=== PATIENT | female | born 1950 | race Caucasian/White ===

== ENCOUNTER 2022-12-25 07:19 | Inpatient (IN) | payer OTHER, MEDICAID ==
[~2022-12-25] VITALS: Ht 157.5 cm; Wt 79.4 kg
[2022-12-25 07:23] VITALS: BP 184/74; PULSE 64; RESP 16; TEMP 98.1; O2SAT 97
--- NOTE | 2022-12-25 07:32 | NUR ---
PT PLACED IN ROOM 11, REPORT GIVEN TO KAROLINA GRIMM. PT PLACED ON FIG CAPRIFIER.
[2022-12-25] MEDS ORDERED: MORPHINE SULFATE 4 MG/ML SYR IVP ONE (07:35)
[2022-12-25] MEDS ORDERED: ONDANSETRON 4 MG/2 ML VIAL IVP ONE (07:35)
[2022-12-25 08:06] LABS: BASOPHILS % (AUTO) 0.2 % (0.0-2.0); EOSINOPHILS % (AUTO) 0.1 % (0.0-4.0); HEMOGLOBIN 13.6 g/dL (12.0-16.0); LYMPHOCYTES # (AUTO) 1.5 K/uL (2.5-16.5); LYMPHOCYTES % (AUTO) 14.3 % (20.5-51.1); MEAN CORPUSCULAR HEMOGLOBIN 30 pg (27-31); MEAN CORPUSCULAR HGB CONC 33 g/dL (33-37); MEAN CORPUSCULAR VOLUME 90.3 fL (80-94); MONOCYTES # (AUTO) 0.3 K/uL (0.8-1.0); MONOCYTES % (AUTO) 3.2 % (1.7-9.3); NEUTROPHILS # (AUTO) 8.8 K/uL (1.8-7.7); NEUTROPHILS % (AUTO) 82.2 % (42.2-75.2); PLATELET COUNT (AUTO) 198 K/uL (140-450); RED BLOOD CELL COUNT(AUTO) 4.54 MIL/uL (4.20-5.40); RED CELL DISTRIBUTION WIDTH 14.7 % (11.6-13.7); WHITE BLOOD COUNT (AUTO) 10.8 K/uL (4.8-10.8)
[2022-12-25 08:14] VITALS: BP 179/82; PULSE 77; RESP 16; TEMP 97.5; O2SAT 90
[2022-12-25 08:24] LABS: ALBUMIN 3.6 g/dL (3.4-5.0); ANION GAP 14.7 (8-16); ASPARTATE AMINOTRANSFERASE 18 U/L (15-37); CARBON DIOXIDE 24.9 mmol/L (21-32); CHLORIDE 103 mmol/L (98-107); CREATININE 0.8 mg/dL (0.6-1.3); GLUCOSE 229 mg/dL (74-106); LIPASE 58 U/L (73-393); POTASSIUM 3.6 mmol/L (3.5-5.1); SODIUM SERUM 139 mmol/L (136-145); TOTAL BILIRUBIN 0.3 mg/dL (0.0-1.0); UREA NITROGEN, BLOOD 24 mg/dL (7-18)
[2022-12-25] MEDS ORDERED: NACL 0.9% 1,000 ML IV ONE (08:35)
--- NOTE | 2022-12-25 08:35 | NUR ---
Spoke to [facility] ED RN Radha Tellez and stated pain reassessed at 0835 with pain decreased to 5/10. ED director aware.
[2022-12-25] MEDS ORDERED: KETOROLAC 30 MG/ML VIAL IVP ONE (09:15)
--- NOTE | 2022-12-25 09:30 | NUR ---
MEDS GIVEN, BARCODE SCANNER NOT FUNCTIONING UNABLE TO SCAN.
--- NOTE | 2022-12-25 10:15 | NUR ---
Per [facility] ED RN Radha Tellez, pain reassessed at 1015 with pain decreased to 2/10. ED director aware.
[2022-12-25 11:13] LABS: APPEARANCE,URINE CLEAR (CLEAR); BILIRUBIN,URINE NEGATIVE (NEGATIVE); BLOOD, URINE 1+ (NEGATIVE); COLOR,URINE YELLOW (YELLOW); LEUKOCYTE ESTERASE ,URINE NEGATIVE (NEGATIVE); NITRITE, URINE NEGATIVE (NEGATIVE); UGLUCOSE TRACE (NEGATIVE)
[2022-12-25] MEDS ORDERED: SYN.075 PO (11:57)
[2022-12-25] MEDS ORDERED: METO50TE2 PO (11:57)
[2022-12-25] MEDS ORDERED: TRAM50TA3 PO (11:57)
[2022-12-25] MEDS ORDERED: LINA145C PO (11:57)
[2022-12-25 12:13] VITALS: BP 149/66; TEMP 98.2
--- NOTE | 2022-12-25 12:38 | NUR ---
PT TAKEN TO BED 125A FROM ER TO M/S
--- NOTE | 2022-12-25 12:42 | NUR ---
Patient will be admitted to care of DR DIAZ. Admited to MED SURG. Will go to [id number]. Belongings list completed. Report to [facility]ARA.
--- NOTE | 2022-12-25 13:43 | NUR ---
PATIENT HAS BEEN SCREENED AND CATEGORIZED LOW NUTRITION RISK. PATIENT WILL BE SEEN WITHIN 7 DAYS OF ADMISSION. 01/01/[address]
--- NOTE | 2022-12-25 14:00 | NUR ---
admitted the patient from emergency room rn Masha [id number] admitting diagnosis of small bowel obstruction . in rm 125A . will continue to monitor
--- NOTE | 2022-12-25 14:30 | NUR ---
was transferred to to rm 119B due the wall suction not working
--- NOTE | 2022-12-25 14:35 | NUR ---
transfer to 119B . connected to intertimment low suction thru naso gastric tube . bloody exudates
--- NOTE | 2022-12-25 15:00 | NUR ---
notify Md regarding blood exudates . order gastrointestinal consult meri camacho , order also small bowel through . morphine 2mg q4 was also prescribe for pain
[2022-12-25] MEDS ORDERED: MORPHINE SULFATE 2 MG/ML SYR IVP PRN (15:50)
[2022-12-25 16:37] VITALS: PULSE 68; RESP 20; O2SAT 99
--- NOTE | 2022-12-25 18:00 | NUR ---
[facility] surgery consult arrive also to see the patient . but the daughter has already sign AMA
--- NOTE | 2022-12-25 18:25 | NUR ---
the patient left against medical advice . risk and benefits of AMA was explained with the family and patient . brought to the lobby thru a wheelchair to a waiting private car of the daughter
[2022-12-26] MEDS ORDERED: LEVOTHYROXINE 0.075 MG TAB PO SCH (06:30)
[2022-12-26] MEDS ORDERED: METOPROLOL SUCCINATE 50 MG TABER PO SCH (09:00)
== END 2022-12-25 18:00 | disposition left against medical advice (07) | DRG 394 ==
LOC: MED 07:19 → MMU 11:49 → MTU 16:00
DX: K43.3 Parastomal hernia with obstruction, without gangrene (principal); E87.20 Acidosis, unspecified; K56.609 Unspecified intestinal obstruction, unspecified as to partial versus complete obstruction; N13.30 Unspecified hydronephrosis; K43.6 Other and unspecified ventral hernia with obstruction, without gangrene; K46.0 Unspecified abdominal hernia with obstruction, without gangrene; E86.0 Dehydration; N28.1 Cyst of kidney, acquired; I10 Essential (primary) hypertension; E03.9 Hypothyroidism, unspecified; Z85.038 Personal history of other malignant neoplasm of large intestine; Z85.3 Personal history of malignant neoplasm of breast
CPT/HCPCS: 36415; 71045; 80053; 81001; 83605; 83690; 84484; 85025; 86886; 86900; 86901; 93005; 96374; 96375; 99285; J1885; J2270; J2405; Q0092; Q9967